=== PATIENT | male | born 2000 | race Hispanic/Latino ===

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

== ENCOUNTER 2019-01-05 08:56 | Emergency (ER) | payer MEDICAID ==
[2019-01-05] MEDS ORDERED: BOOSTRIX IM ONE (09:22)
--- NOTE | 2019-01-05 09:24 | Event Note ---
ED Screening Note ED Screening Note: CO L HAND PAIN SP REMOVING FB HIMSELF LAST WEEK FEELS LIKE HE HAS SOMETHING STILL IN IT. U/R/M NERVES INTACT RAD/ULNAR PULSE PLUS 2 RAPID CAP REFILL This initial assessment/diagnostic orders/clinical plan/treatment(s) is/are subject to change based on patients health status, clinical progression and re-assessment by fellow clinical providers in the ED. Further treatment and workup at subsequent clinical providers discretion. Patient/guardian urged not to elope from the ED as their condition may be serious if not clinically assessed and managed. Initial orders include:
[2019-01-05 09:26] VITALS: BP 147/78
--- NOTE | 2019-01-05 09:48 | XRay Report ---
LEFT HAND, 3 views: History: Pain in hand, status post foreign body removal. The bony architecture is intact. Bony alignment is normal. No soft tissue abnormalities are seen. The joint spaces appear preserved. No persistent radiopaque soft tissue foreign body is identified. IMPRESSION: Normal left hand.
--- NOTE | 2019-01-05 09:52 | Emergency Department Report ---
- General Chief complaint: Skin/Abscess/Foreign Body Stated complaint: L HAND INJURY Time Seen by Provider: 01/05/19 09:38 Source: patient Mode of arrival: Ambulatory Limitations: No Limitations - History of Present Illness Initial comments: Pt is a 18 yo male who presents to the ED with c/o left hand pain. He states that a week ago he was walking at work with a 2x4 piece of wood and tripped and fell and a piece of the wood got stuck in his left hand. he states that he pulled the wood out himself and washed the area. he states that he has a foreign body sensation in the left hand and feels pain when he moves the hand. he denies any fever or erythema. he states that he saw a small amount of yellow drainage. the patient states initially he had tingling present in his left pinky which has since resolved. he denies any numbness or weakness. he is unsure of his last tetanus immunization. - Related Data Previous Rx's Medication Instructions Recorded Last Taken Type Cyclobenzaprine [Flexeril] 10 mg PO TID PRN #15 tablet 08/08/17 Unknown Rx Ibuprofen [Motrin] 600 mg PO Q8H PRN #15 tablet 08/08/17 Unknown Rx Acetaminophen with Codeine 1 each PO Q6H #12 tablet 09/26/17 Unknown Rx [Tylenol with Codeine #3 Tablet] Ibuprofen [Motrin] 800 mg PO Q8HR PRN #30 tablet 09/26/17 Unknown Rx Sulfamethoxazole/Trimethoprim 1 each PO BID #20 tablet 09/26/17 Unknown Rx [Bactrim DS TAB] cephALEXin [Keflex] 500 mg PO QID 7 Days #28 capsule 01/05/19 Unknown Rx Allergies Allergy/AdvReac Type Severity Reaction Status Date / Time No Known Allergies Allergy Verified 08/08/17 06:36 Abscess Boil HPI - HPI Chief Complaint: Skin/Abscess/Foreign Body Stated Complaint: L HAND INJURY Time Seen by Provider: 01/05/19 09:38 Home Medications: Previous Rx's Medication Instructions Recorded Last Taken Type Cyclobenzaprine [Flexeril] 10 mg PO TID PRN #15 tablet 08/08/17 Unknown Rx Ibuprofen [Motrin] 600 mg PO Q8H PRN #15 tablet 08/08/17 Unknown Rx Acetaminophen with Codeine 1 each PO Q6H #12 tablet 09/26/17 Unknown Rx [Tylenol with Codeine #3 Tablet] Ibuprofen [Motrin] 800 mg PO Q8HR PRN #30 tablet 09/26/17 Unknown Rx Sulfamethoxazole/Trimethoprim 1 each PO BID #20 tablet 09/26/17 Unknown Rx [Bactrim DS TAB] cephALEXin [Keflex] 500 mg PO QID 7 Days #28 capsule 01/05/19 Unknown Rx Allergies/Adverse Reactions: Allergies Allergy/AdvReac Type Severity Reaction Status Date / Time No Known Allergies Allergy Verified 08/08/17 06:36 ED Review of Systems ROS: Stated complaint: L HAND INJURY Other details as noted in HPI Comment: All other systems reviewed and negative ED Past Medical Hx - Past Medical History Previous Medical History?: Yes Hx Arthritis: Yes (ARTHRITIS IN BACK) Hx Asthma: Yes - Surgical History Past Surgical History?: No - Social History Smoking Status: Current Every Day Smoker Substance Use Type: None - Medications Home Medications: Home Medications Medication Instructions Recorded Confirmed Last Taken Type Cyclobenzaprine [Flexeril] 10 mg PO TID PRN #15 tablet 08/08/17 Unknown Rx Ibuprofen [Motrin] 600 mg PO Q8H PRN #15 tablet 08/08/17 Unknown Rx Acetaminophen with Codeine 1 each PO Q6H #12 tablet 09/26/17 Unknown Rx [Tylenol with Codeine #3 Tablet] Ibuprofen [Motrin] 800 mg PO Q8HR PRN #30 tablet 09/26/17 Unknown Rx Sulfamethoxazole/Trimethoprim 1 each PO BID #20 tablet 09/26/17 Unknown Rx [Bactrim DS TAB] cephALEXin [Keflex] 500 mg PO QID 7 Days #28 capsule 01/05/19 Unknown Rx ED Physical Exam - General Limitations: No Limitations General appearance: alert, in no apparent distress - Head Head exam: Present: atraumatic, normocephalic - Eye Eye exam: Present: normal appearance - ENT ENT exam: Present: mucous membranes moist - Neurological Exam Neurological exam: Present: alert, oriented X3 - Psychiatric Psychiatric exam: Present: normal affect, normal mood - Skin Skin exam: Present: warm, dry, other (healed 1 cm laceration to the palmar surface of the left hand, clean, dry, intact, approximated, hardened callus over the skin, FROM of all left fingers, left hand, left wrist with no difficulty, no snuffbox tenderness, 2+ radial pulse, brisk cap refill, mild TTP over the callused area on the left hand, sensation intact) ED Course Vital Signs 01/05/19 09:24 Temperature 98.0 F Pulse Rate 82 Respiratory 16 Rate Blood Pressure 147/78 O2 Sat by Pulse 99 Oximetry ED Medical Decision Making - Radiology Data Radiology results: report reviewed LEFT HAND, 3 views: History: Pain in hand, status post foreign body removal. The bony architecture is intact. Bony alignment is normal. No soft tissue abnormalities are seen. The joint spaces appear preserved. No persistent radiopaque soft tissue foreign body is identified. IMPRESSION: Normal left hand. Transcribed By: TTR Dictated By: LILLIAN MENJIVAR JR, MD Electronically Authenticated By: LILLIAN MENJIVAR JR, MD Signed Date/Time: 01/05/19 0968 - Medical Decision Making Pt is a 18 yo male who presents to the ED with c/o left hand pain. He states that a week ago he was walking at work with a 2x4 piece of wood and tripped and fell and a piece of the wood got stuck in his left hand. he states that he pulled the wood out himself and washed the area. he states that he has a foreign body sensation in the left hand and feels pain when he moves the hand. he denies any fever or erythema. he states that he saw a small amount of yellow drainage. the patient states initially he had tingling present in his left pinky which has since resolved. he denies any numbness or weakness. he is unsure of his last tetanus immunization. XR left hand: The bony architecture is intact. Bony alignment is normal. No soft tissue abnormalities are seen. The joint spaces appear preserved. No persistent radiopaque soft tissue foreign body is identified. on exam: healed 1 cm laceration to the palmar surface of the left hand, clean, dry, intact, approximated, hardened callus over the skin, FROM of all left fingers, left hand, left wrist with no difficulty, no snuffbox tenderness, 2+ radial pulse, brisk cap refill, mild TTP over the callused area on the left hand, sensation intact. XR does not show foreign body. skin is well healed and has callused over, discussed with pt that opening the area and searching for tiny pieces of wood could cause more harm than good, pt agrees. pt given tetanus immunization while in the ED. pt placed on keflex. advised to follow up with PCP in the next 2-3 days. return to the emergency room for any new or worsening symptoms. Critical care attestation.: If time is entered above; I have spent that time in minutes in the direct care of this critically ill patient, excluding procedure time. ED Disposition Clinical Impression: Laceration of left hand Qualifiers: Encounter type: initial encounter Foreign body presence: without foreign body Qualified Code(s): S61.412A - Laceration without foreign body of left hand, initial encounter Disposition: TO HOME OR SELFCARE Is pt being admited?: No Does the pt Need Aspirin: No Condition: Stable Instructions: Laceration (ED) Additional Instructions: take medication as prescribed. Follow up with a primary care doctor in the next 2-3 days. return to the emergency room for any new or worsening symptoms. Prescriptions: cephALEXin [Keflex] 500 mg PO QID 7 Days #28 capsule Referrals: ALYCIA BARKER MD [Primary Care Provider] - 2-3 Days Time of Disposition: 10:00 Print Language: MOZAMBICAN
== END 2019-01-05 10:15 | disposition home or self-care (01) ==
LOC: ED 08:56
DX: S61.412A Laceration without foreign body of left hand, initial encounter (principal); M19.90 Unspecified osteoarthritis, unspecified site; J45.909 Unspecified asthma, uncomplicated; F17.200 Nicotine dependence, unspecified, uncomplicated; Z79.899 Other long term (current) drug therapy; W01.0XXA Fall on same level from slipping, tripping and stumbling without subsequent striking against object, initial encounter; Y93.89 Activity, other specified; Y92.89 Other specified places as the place of occurrence of the external cause; Y99.8 Other external cause status
CPT/HCPCS: 90471; 90715

== ENCOUNTER 2021-10-01 15:23 | Emergency (ER) | payer MEDICAID ==
[2021-10-01] MEDS ORDERED: IBUPROFEN 800 MG TAB PO STA (16:15)
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
--- NOTE | 2021-10-01 16:42 | XRay Report ---
XR foot 3+V LT INDICATION / CLINICAL INFORMATION: mid foot pain after injury 2 weeks ago. COMPARISON: None available. FINDINGS: BONES/JOINT(S): No acute fracture or subluxation. No significant degenerative changes. SOFT TISSUES: No significant abnormality. ADDITIONAL FINDINGS: None. Signer Name: Jon Robbins MD Signed: 10/01/2021 4:38 PM Workstation Name: [facility]
[2021-10-01 17:31] VITALS: BP 121/75
== END 2021-10-01 17:31 | disposition home or self-care (01) ==
LOC: ED 15:23
DX: M79.672 Pain in left foot (principal)
CPT/HCPCS: 99283